=== PATIENT | male | born 1985 | race African-American/Black ===

== ENCOUNTER 2017-09-14 12:11 | Emergency (ER) | payer OTHER ==
[2017-09-14] MEDS: HYDROCODONE/APAP (5/325) TAB PO (12:31)
== END 2017-09-14 15:02 | disposition home or self-care (01) ==
LOC: E/R 12:11
DX: L03.032 Cellulitis of left toe (principal); R59.0 Localized enlarged lymph nodes
CPT/HCPCS: 76536; 99284-25